=== PATIENT | male | born 1980 | race American Indian/Alaskan Native ===

== ENCOUNTER 2017-03-15 01:55 | Emergency (ER) | payer SELFPAY ==
[2017-03-15 02:07] VITALS: O2SAT 99
--- NOTE | 2017-03-15 03:11 | C.PDOC ---
History Of Present Illness 36 year old male presents to the ED for evaluation after he slipped down his stairs yesterday injuring his lower back and right hip. Patient reports his pain is progressively worse since yesterday, he reports not taking any pain medications at home. Patient denies weakness, numbness, saddle anesthesia, incontinence, sensory or motor deficits. Time Seen by Provider: 03/15/17 02:14 Chief Complaint (Nursing): Back Pain History Per: Patient History/Exam Limitations: no limitations Onset/Duration Of Symptoms: Days Current Symptoms Are (Timing): Still Present Quality Of Discomfort: "Pain" Previous Symptoms: Back Pain Associated Symptoms: None Exacerbating Factor(s): Nothing Recent travel outside of the [place]: No Additional History Per: Patient Past Medical History Reviewed: Historical Data, Nursing Documentation, Vital Signs Vital Signs: Last Vital Signs Temp 97.4 F L 03/15/17 02:04 Pulse 77 03/15/17 02:04 Resp 16 03/15/17 02:04 BP 138/87 03/15/17 02:04 Pulse Ox 99 03/15/17 03:31 - Medical History PMH: No Chronic Diseases Surgical History: No Surg Hx - [facility] Procedures CLOSURE SKIN & SUBCUTANEOUS NEC (12/24/12) Family History: States: Unknown Family Hx - Social History Hx Tobacco Use: No Hx Alcohol Use: No Hx Substance Use: No - Immunization History Hx Tetanus Toxoid Vaccination: Yes (05/2012) Hx Influenza Vaccination: No Hx Pneumococcal Vaccination: No Review Of Systems Constitutional: Negative for: Fever, Chills Cardiovascular: Negative for: Chest Pain, Palpitations Respiratory: Negative for: Cough, Shortness of Breath Gastrointestinal: Negative for: Nausea, Vomiting, Abdominal Pain Musculoskeletal: Positive for: Back Pain (lower), Other (right hip pain) Skin: Negative for: Rash Neurological: Negative for: Weakness, Numbness Physical Exam - Physical Exam Appears: Non-toxic, No Acute Distress Skin: Normal Color, Warm, Dry Head: Atraumatic, Normacephalic Eye(s): bilateral: Normal Inspection Nose: No Discharge, No Deformity Oral Mucosa: Moist Neck: Normal ROM, Supple Gastrointestinal/Abdominal: Normal Exam Back: No CVA Tenderness, Vertebral Tenderness (Lumbar), Decreased ROM (due to pain), Paraspinal Tenderness (right), No Other (erythema, or ecchymosis) Extremity: Normal ROM (right hip diminishe due to pain), Tenderness (right hip) , No Pedal Edema, No Calf Tenderness, Capillary Refill (< 2 seconds), No Deformity, No Swelling Pulses: Left Dorsalis Pedis: Normal, Right Dorsalis Pedis: Normal Neurological/Psych: Oriented x3, Normal Speech, Normal Cognition, Normal Motor, Normal Sensation Gait: Steady ED Course And Treatment O2 Sat by Pulse Oximetry: 99 (On RA) Pulse Ox Interpretation: Normal - Other Rad LS X-Ray: Interpreted by Me, Viewed By Me Interpretation: No fx of Rt hip and LS Progress Note: Plan: -Motrin 800 mg PO. -Right Hip X-Ray. 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 - Scribe Statement The provider has reviewed the documentation as recorded by the Scribe Dread Jewell All medical record entries made by the Scribe were at my direction and personally dictated by me. I have reviewed the chart and agree that the record accurately reflects my personal performance of the history, physical exam, medical decision making, and the department course for this patient. I have also personally directed, reviewed, and agree with the discharge instructions and disposition.
[2017-03-15 03:51] VITALS: BP 120/80; PULSE 80; RESP 14; TEMP 97.8
--- NOTE | 2017-03-15 08:54 | RAD ---
PROCEDURE: Radiographs of the Lumbar Spine. HISTORY: pain, fall COMPARISON: No prior. FINDINGS: BONES: Normal alignment. No listhesis. No fracture. DISC SPACES: Unremarkable. OTHER FINDINGS: None. IMPRESSION: Unremarkable radiographs of the lumbar spine.
--- NOTE | 2017-03-15 08:55 | RAD ---
PROCEDURE: Right Hip Radiographs. HISTORY: pain, fall COMPARISON: None. FINDINGS: BONES: Normal. No fracture. JOINTS: Normal. SOFT TISSUES: Normal. OTHER FINDINGS: None. IMPRESSION: No evidence of acute fracture or dislocation.
== END 2017-03-15 03:51 | disposition home or self-care (01) ==
LOC: C.ER 01:55
DX: S30.0XXA Contusion of lower back and pelvis, initial encounter (principal); S70.01XA Contusion of right hip, initial encounter; W10.9XXA Fall (on) (from) unspecified stairs and steps, initial encounter